=== PATIENT | female | born 1930 | race Caucasian/White ===

== ENCOUNTER 2016-07-26 18:57 | Inpatient (IN) | payer OTHER ==
--- NOTE | ~2016-07-26 | EKG ---
PATIENT: JASS SLATER UNIT #: [id number] Ventricular Rate: 74 BPM Atrial Rate: 74 BPM P-R Interval: 208 ms QRS Duration: 86 ms Q-T Interval: 428 ms QTC Calculation(Bezet): 475 ms P [place]: 49 degrees Calculated R [place]: 8 degrees Calculated T [place]: 63 degrees Diagnosis Line: Normal sinus rhythm Diagnosis Line: ST and T wave abnormality, consider lateral ischemia Diagnosis Line: Prolonged QT Diagnosis Line: Abnormal ECG Diagnosis Line: No previous ECGs available Diagnosis Line: Confirmed by MELANIE CARBONE MD ([id number]) on 07/27/2016 Diagnosis Line: 5:42:25 PM INTERPRETING MD: TONA OSHEA
--- NOTE | ~2016-07-26 | CO ---
Unit #: [id number] #: [id number] Patient: JASS SLATER [id number] [place], [place] [address] [id number] I MR#: [id number] NAME: JASS SLATER. ROOM: 552 Age: 86 Sex: F Admission Date: 07/27/2016 : 1930 Attending Physician: Billie Ellis M.D. Primary Care Physician: Patel Shahid M.D. CONSULTATION REPORT REASON FOR CONSULTATION Sinus pauses. HISTORY OF PRESENT ILLNESS The patient is an 86-year-old female who was reportedly at [facility] yesterday and says she felt she "was going down" and then woke on the floor. According to chart review, there was also some nausea and lightheadedness prior to the episode. The patient was reportedly without consciousness for approximately 2 minutes. EMS was called, and the patient was transferred to the emergency department. She was found to have a heart rate of 82 and a blood pressure of 182/100. Rhythm strips showed normal sinus rhythm with prolonged sinus pauses of approximately 4 seconds. The patient denies any other episodes of lightheadedness, dizziness or syncope prior to this episode. She also denies any problems with chest pain, shortness of breath, orthopnea, PND, palpitations or tachycardia. The patient says that she lives alone and obtains her own groceries and is fairly active. She also reports that she ran out of her medications 2 days ago. PAST MEDICAL HISTORY 1. Hypertension. 2. Dyslipidemia. PAST SURGICAL HISTORY 1. Cataracts. 2. Cholecystectomy. 3. Total abdominal hysterectomy. 4. Appendectomy. 5. Tonsillectomy. HOME MEDICATIONS Unknown. A list has been requested from her pharmacy. ALLERGIES Sulfa and morphine. SOCIAL HISTORY She has never smoked. She denies alcohol use or illicit drug use. She lives alone. FAMILY HISTORY There is no family history of premature coronary artery disease. REVIEW OF SYSTEMS Unit #: [id number] #: [id number] Patient: JASS SLATER GENERAL: Denies fevers, chills or flu-like symptoms. HEENT: Denies headaches, vision loss, hearing loss, epistaxis or dysphagia. NECK: Denies swollen glands or pain. PULMONARY: Denies cough, hemoptysis or wheezing. CARDIAC: Denies chest pain, palpitations, tachycardia, orthopnea or PND. ABDOMEN: Denies nausea, vomiting, diarrhea or melena. : Denies hematuria. EXTREMITIES: Denies swelling or pain. MUSCULOSKELETAL: Denies joint pain or back pain. NEUROLOGIC: Denies other episodes of dizziness or lightheadedness other than the above-mentioned episode. PHYSICAL EXAMINATION VITAL SIGNS: Blood pressure is 118/62, heart rate 75 and regular, respirations 18 and regular, temperature 97.5. Weight is 141 pounds. GENERAL: The patient is a well-developed, well-nourished female in no acute distress. Awake, alert and oriented x2. The patient does not recall the year. HEENT: Head is normocephalic, atraumatic. There are no xanthelasmas. Oral mucosa is pink and moist. NECK: No JVD or carotid bruits. SPINE: Positive for kyphosis. CARDIAC: Regular rate and rhythm without murmur, gallop, rub or lift. PULMONARY: Clear to auscultation bilaterally without wheezes, rhonchi, rales or accessory muscle use. ABDOMEN: Soft, nontender, nondistended. Positive bowel sounds x4. Abdominal pulsation is not enlarged. EXTREMITIES: No clubbing, cyanosis or edema. DIAGNOSTIC STUDIES LABS: White blood cell 11.5, hemoglobin 13.1, hematocrit 40.3, platelets 227. Sodium 139, potassium 3.3, chloride 105, CO2 24, glucose 135, BUN 13, creatinine 0.9, AST 25, ALT 19. PT 10.6, INR 1. IMAGING: CT of the head without contrast showed generalized atrophy and periventricular microvascular white matter ischemic change but no acute intracranial abnormality. There was right maxillary sinusitis. CT of the abdomen and pelvis with contrast showed surgical absence of gallbladder. Diverticulosis. No evidence of diverticulitis. A moderate sized hiatal hernia. ASSESSMENT AND PLAN 1. Sick sinus syndrome with 4-second pauses and syncope. 2. Hypertension. 3. Dyslipidemia. Ms. Slater' case was discussed with Dr. Ramos and Dr. Ellis. She will be transferred to [facility] for permanent pacemaker placement. The patient's family has been contacted and are agreeable. She will also have a two-D echo prior to being transferred to determine her EF. Dictated by... Juno oMnahan for Saturnino Ramos M.D. Unit #: [id number] #: [id number] Patient: SLATERJASS CMG/sherman TD: 07/27/2016 09:17 JOB #: [id number] CONSULTATION REPORT X X CONSULTATION REPORT
--- NOTE | ~2016-07-26 | HP ---
Unit #: [id number] #: [id number] Patient: JASS SLATER [id number] [facility]. [place], [place] [address] [id number] I MR#: [id number] NAME: JASS SLATER. ROOM: 55 Age: 86 Sex: F Admission Date: 07/27/2016 : 1930 Attending Physician: Didi Mayfield M.D. Primary Care Physician: Patel Shahid M.D. HISTORY AND PHYSICAL CHIEF COMPLAINT Syncope. HISTORY This pleasant 86-year-old female with hypertension, hyperlipidemia, is admitted for syncope. The patient states that she was well until yesterday. She was walking to the [place] line at [facility] [employer], felt very lightheaded and nauseous. Sat down and then had a two minute syncopal episode. EMS was called, and the patient was brought to this emergency department with initial heart rate of 82, blood pressure 182/100. Rhythm strips show long sinus pauses and bradycardia. The patient denies chest pain, shortness of breath or palpitations with the above. The patient was last admitted for syncope in 2003 which was thought to be possibly neurocardiac syncope. Has not had a syncopal episode since that time. In our ER, she was treated with 20 mg of IV labetalol, 4 mg of Zofran, 0.2 mg of clonidine. Current blood pressure is 96/58. PAST MEDICAL HISTORY 1. Hypertension. 2. Hyperlipidemia. 3. Cataract extraction. 4. Cholecystectomy. 5. Total abdominal hysterectomy. 6. Appendectomy. 7. Tonsillectomy. ALLERGIES Sulfa and morphine. HOME MEDICATIONS Unknown. Will obtain list from [employer] and [employer]. FAMILY HISTORY Negative for CAD. SOCIAL HISTORY The patient lives alone. She is a lifelong nonsmoker, does not drink alcohol. Unit #: [id number] #: [id number] Patient: JASS SLATER A REVIEW OF SYSTEMS Notable for syncope today, nausea, above mentioned surgeries, hypertension, hyperlipidemia. All other systems were reviewed and are negative. PHYSICAL EXAMINATION GENERAL APPEARANCE: Very pleasant 86-year-old female who looks younger than stated age. VITAL SIGNS: Temperature 97.2, pulse 82, respirations 14, blood pressure 182/100. O2 saturation 97% on room air. HEENT: Eyes PERRLA. Extraocular muscles are intact, status post bilateral cataract extraction. Pharynx is benign. NECK: Supple without adenopathy or thyromegaly. No carotid bruits. CHEST: Clear. CARDIAC: Normal S1 and S2 without murmur. ABDOMEN: Bowel sounds are present. No hepatosplenomegaly, tenderness or masses. EXTREMITIES: Without clubbing, cyanosis or edema. Pedal pulses are present. NEUROLOGIC EXAM: The patient is awake, alert, oriented. Cranial nerves are intact. She has strength throughout. DIAGNOSTIC STUDIES LABORATORY: Admission labs - hematocrit 43.1, normal white count and platelet count. Negative cardiac markers. Coags are normal. SMA-12 - glucose 135, potassium 3.3. IMAGING: Head CT - atrophy, small vessel ischemic disease, right maxillary sinusitis but nothing acute. CT scan of the abdomen and pelvis - diverticular disease and moderate hiatal hernia. CARDIOVASCULAR: EKG shows a normal sinus rhythm, rate 75 with a first degree AV block. Nonspecific ST wave abnormalities. ASSESSMENT 1. Syncope preceded by lightheadedness while ambulating at [facility] today: The patient is normally active without symptoms. EMS rhythm strip shows long sinus pauses and bradycardia. 2. Accelerated hypertension. 3. Hyperlipidemia. 4. Mild hypokalemia. 5. Family is concerned that patient may be showing some early signs of dementia with sundowning. I did not mention this in my H and P. PLANS 1. Obtain echo, Holter monitor, repeat cardiac enzymes and consult cardiology. 2. Start aspirin. 3. Blood pressure control. 4. Obtain TSH, B12, urinalysis. 5. SCDs for DVT prophylaxis. 6. Verify home medicines. 7. I discussed with family the patient should be seen by her primary Unit #: [id number] #: [id number] Patient: JASS SLATER A care physician for concerns of memory issues. I have also given the family the name of a neurologist, Dr. Raffi Rod, if further workup needs to be performed also. Dictated by Didi Mayfield M.D. AML/df TD: 07/27/2016 05:02 JOB #: [id number] CC: Marcia Rooney M.D. HISTORY AND PHYSICAL X Didi Mayfield MD HISTORY AND PHYSICAL
--- NOTE | ~2016-07-26 | DS ---
Unit #: [id number] #: [id number] Patient: JASS SLATER [id number] [facility]. [place], [place] [address] [id number] I MR#: [id number] NAME: JASS SLATER. ROOM: 552 Age: 86 Sex: F Admission Date: 07/27/2016 : 1930 Discharge Date: 07/27/2016 Attending Physician: Billie Ellis M.D. Primary Care Physician: Paetl Shahid M.D. DISCHARGE SUMMARY PRINCIPAL DIAGNOSES 1. Syncope secondary to four second pause. 2. Sick sinus syndrome with associated significant bradycardia. 3. Hypertensive urgency. 4. Urinary retention status post Soler catheter placement. 5. Hypokalemia. 6. Hyperlipidemia. 7. Memory loss with associated sundowning. 8. Right maxillary sinusitis. GEAR STRAIGHTENER Dr. Guillen, Cardiology. PROCEDURES 1. CT of the head without contrast, on July 26, 2016, with generalized atrophy and periventricular microvascular white matter ischemic change. Right maxillary sinusitis noted. 2. CT scan of the abdomen and pelvis with contrast with surgical absence of gallbladder, diverticulosis noted. Moderate sized hiatal hernia noted. CLINICAL HISTORY AND HOSPITAL COURSE Ms. Slater is an 86-year-old female transferred to the hospital via EMS after an episode of syncope at [facility]. Please refer to H and P for further details. Blood pressure was elevated at 182/100 in the emergency department. Rhythm strips from EMS demonstrate approximately a four to five second sinus pause with associated significant bradycardia with heart rates in the thirties to forties. The patient denies any chest pain. She was admitted to our hospital for further evaluation. The patient remained stable overnight in normal sinus rhythm. However, her significant sinus pause is concerning. I have discussed with the patient who, unfortunately, has some memory loss which is limiting her understanding. I have also discussed this finding with the patient's daughter, Ms. Ade Daniel. I have informed her that treatment for this would be permanent pacemaker placement. Strips have been reviewed by Cardiology who agree with treatment and the patient will be transferred to [facility] in anticipation of pacemaker placement later today per Dr. Ramos. The patient is also complaining of urinary retention without urination since yesterday. I am going to place a Soler catheter prior to discharge and this can be followed up at [facility]. Unit #: [id number] #: [id number] Patient: JASS SLATER The patient also clinically does have some significant underlying memory loss. TSH and vitamin B12 here are pending and they can be further evaluated at [facility]. DISCHARGE CONDITION Stable but in need of pacemaker, transferred to [facility] in anticipation of pacemaker placement. DISCHARGE MEDICATIONS 1. Tylenol 650 mg p.o. or p.r. q.4 hours p.r.n. for pain. 2. Hydralazine 10 mg IV q.6 hours p.r.n. for systolic blood pressure greater than 160. 3. Zofran 4 mg IV q.6 hours p.r.n. for nausea, vomiting. 4. Normal saline at 75 mL/hour. DISCHARGE INSTRUCTIONS The patient will remain n.p.o. for now in anticipation of permanent pacemaker. FOLLOWUP The patient, again, will be seen by Dr. Ramos at [facility] and this will be further discussed with patient and her family at that time. Time spent on discharge-41 minutes. Dictated by... Billie Ellis M.D. FLEX/madelyn TD: 07/27/2016 08:24 JOB #: [id number] DISCHARGE SUMMARY X Billie Ellis MD X DISCHARGE SUMMARY
--- NOTE | ~2016-07-26 | CT2 ---
[facility] A Service of [facility] RADIOLOGY TEXT RESULTS PATIENT: JASS SLATER LOCATION: [facility] 552-01 : 32 UNIT #: [id number] AGE: [address]: Billie Ellis MD SEX: F ORDER DR: [id number] [facility] [address] [place], [place] [address] [id number] I MR#: [id number] Acc #: [id number] NAME: JASS SLATER. : 1930 SEX: F STUDY DATE/TIME: 07/26/2016 20:37 UNIT: [facility] ROOM: [facility] STUDY DESCRIPTION: CT Abd and Pelv W Cont Attending Physician: Didi Mayfield M.D. Ordering Physician: Ronnell Dinh M.D. Primary Care Physician: Patel Shahid M.D. MEDICAL IMAGING REPORT This report is preliminary unless electronic signature is present EXAM CT scan of the abdomen and pelvis with contrast, 07/26/2016 HISTORY Nausea and vomiting today after syncopal episode. TECHNIQUE Spiral CT was performed through the abdomen and pelvis following oral and intravenous contrast administration. This CT exam was performed with one or more of the following radiation dose reduction techniques: Automatic exposure control, adjustment of mA and/or kV according to patient size, and iterative reconstruction. FINDINGS ABDOMEN: There is no prior CT scan of the abdomen and pelvis for comparison. The liver, spleen, pancreas and adrenal glands are normal. The gallbladder is surgically absent. The kidneys are normal. PELVIS FINDINGS: There is colonic diverticulosis without evidence of diverticulitis. The gut is otherwise unremarkable. No adenopathy is seen. There is no free fluid in the abdomen or pelvis. Images of the lung bases demonstrate a moderate-sized hiatal hernia. IMPRESSION 1. Surgical absence of the gallbladder. 2. Diverticulosis. No evidence of diverticulitis. 3. Moderate-sized hiatal hernia. Dictated by... Eric Cr M.D. [facility] A Service [facility] RADIOLOGY TEXT RESULTS PATIENT: JASS SLATER LOCATION: [facility] 552-01 : 32 UNIT #: [id number] AGE: [address]: Billie Ellis MD SEX: F ORDER DR: THIS IS AN ELECTRONICALLY VERIFIED REPORT Eric Cr M.D. at 07/27/2016 2:19 PM KRT/psc TD: 07/27/2016 05:20 JOB #: [id number] MEDICAL IMAGING REPORT COPY
--- NOTE | ~2016-07-26 | CT71 ---
[facility] A Service [facility] RADIOLOGY TEXT RESULTS PATIENT: JASS SLATER LOCATION: [facility] : 32 UNIT #: [id number] AGE: [address]: Billie Ellis MD SEX: F ORDER DR: [id number] [facility] [address] [place], [place] [address] [id number] I MR#: [id number] Acc #: [id number] NAME: JASS SLATER : 1930 SEX: F STUDY DATE/TIME: 07/26/2016 20:35 UNIT: [facility] ROOM: [facility] STUDY DESCRIPTION: CT Head Wo Contrast Attending Physician: Didi Mayfield M.D. Ordering Physician: Ronnell Dinh M.D. Primary Care Physician: Patel Shahid M.D. MEDICAL IMAGING REPORT This report is preliminary unless electronic signature is present EXAM Head CT without contrast, 07/26/2016 HISTORY Syncopal episode with nausea and vomiting today. Benign essential hypertension. FINDINGS This CT exam was performed with one or more of the following radiation dose reduction techniques: Automatic exposure control, adjustment of mA and/or kV according to patient size, and iterative reconstruction. Multiple axial images were obtained from the skull base to vertex without intravenous contrast administration. There is generalized enlargement of the ventricles and sulci characteristic of atrophy, and there is periventricular microvascular white matter ischemic change. There is no midline shift. There is no mass or mass effect, hemorrhage or acute infarct. Complete opacification of the right maxillary sinus is noted. IMPRESSION 1. Generalized atrophy and periventricular microvascular white matter ischemic change. No acute intracranial abnormality. 2. Right maxillary sinusitis. Dictated by... Eric Cr M.D. THIS IS AN ELECTRONICALLY VERIFIED REPORT Eric Cr M.D. at 07/27/2016 2:19 PM KRT/federico TD: 07/27/2016 05:13 [facility] A Service [facility] RADIOLOGY TEXT RESULTS PATIENT: JASS SLATER [facility]ATION: [facility] [address] [id number] : 32 UNIT #: [id number] AGE: [address]: Billie Ellis MD SEX: F ORDER DR: JOB #: [id number] MEDICAL IMAGING REPORT COPY
[~2016-07-26 18:57] MED LIST: BLOOD PRESSURE MED; CENTRUM SILVER PO; IBUPROFEN PO; LIPITOR PO; OYSTER CALCIUM500 MG PO; TOPROL XL PO; TYLENOL ARTHRITIS; ZESTORETIC 20/21 TAB PO
[2016-07-26 19:22] LABS: BASOPHIL% 0.4 % (0-2.5); EOSINOPHIL% 0.4 % (0.0-7.0); HEMATOCRIT 43.1 % (35.0-45.0); HEMOGLOBIN 14.3 gm/dL (12.0-16.0); LYMPHOCYTE# 1.4 X10e3 (1.0-3.5); LYMPHOCYTE% 13.9 % (17.0-45.0); MEAN CELL VOLUME 88.9 FL (83-96); MEAN CORPUSCULAR HEMOGLOBIN 29.6 PG (28-34); MEAN CORPUSCULAR HGB CONC 33.2 g/dL (30-36); MEAN PLATELET VOLUME 10.3 FL (6.5-11.5); MONOCYTE# 0.6 X10e3 (0-1.0); MONOCYTE% 5.9 % (3.0-12.0); NEUTROPHIL# 7.9 X10e3 (1.5-7.1); NEUTROPHIL% 79.4 % (40-75); PLATELET COUNT 196 X10e3 (140-420); RED BLOOD COUNT 4.85 X10e (3.90-5.30); RED CELL DISTRIBUTION WIDTH 13.8 % (11.0-15.5)
[2016-07-26 19:28] LABS: DIFF IND NO
[2016-07-26 19:42] LABS: PARTIAL THROMBOPLASTIN TIME 22.6 SECONDS (23.5-31.3); PROTHROMBIN TIME (PATIENT) 10.6 SECONDS (9.6-11.5)
[2016-07-26 20:26] LABS: ALKALINE PHOSPHATASE 74 U/L (32-92); ALT (SGPT) 19 U/L (10-40); AST (SGOT) 25 U/L (10-42); BILIRUBIN, DIRECT 0.1 mg/dL (0.0-0.2); BILIRUBIN,INDIRECT 0.8 mg/dL (0.0-0.9); BILIRUBIN,TOTAL 0.9 mg/dL (0.2-2.0); BLOOD UREA NITROGEN 13 mg/dL (9-23); BUN/CREATININE RATIO 14.44; CALCIUM SERUM 9.1 mg/dL (8.4-10.2); CARBON DIOXIDE 24 mmol/L (22-31); CHLORIDE 105 mmol/L (100-111); CREATININE SERUM 0.9 mg/dL (0.6-1.4); GLOM FILT RATE Estimated ABOVE60 mL/min (>60); GLUCOSE FASTING 135 mg/dL (70-110); POTASSIUM 3.3 mmol/L (3.5-5.1); PROTEIN TOTAL SERUM 7.4 g/dL (6.0-8.3); SODIUM 139 mmol/L (135-145)
[2016-07-26 23:37] LABS: POC - CKMB 1.4 ng/mL (0.0-7.9); POC - TROPONIN <0.05 ng/mL (<=0.05)
[2016-07-27 07:30] LABS: HEMATOCRIT 40.3 % (35.0-45.0); HEMOGLOBIN 13.1 gm/dL (12.0-16.0); MEAN CELL VOLUME 88.5 FL (83-96); MEAN CORPUSCULAR HEMOGLOBIN 28.8 PG (28-34); MEAN CORPUSCULAR HGB CONC 32.5 g/dL (30-36); MEAN PLATELET VOLUME 9.2 FL (6.5-11.5); RED BLOOD COUNT 4.55 X10e (3.90-5.30); RED CELL DISTRIBUTION WIDTH 13.9 % (11.0-15.5); WHITE BLOOD COUNT 11.5 X10e3 (4.0-10.5)
[2016-07-27 08:21] LABS: BUN/CREATININE RATIO 14.54; CALCIUM SERUM 9.4 mg/dL (8.4-10.2); CREATININE SERUM 1.1 mg/dL (0.6-1.4); GLOM FILT RATE Estimated 50.3 mL/min (>60); MAGNESIUM 2.2 mg/dL (1.6-3.0)
== END 2016-07-27 11:06 | DRG 309 ==
LOC: CED 18:57 → CEDOF 07-27 00:30 → C5B 07-27 02:10
PROVIDERS: Emergency Medicine; Internal Medicine
PROC: B24BYZZ Ultrasonography of Heart with Aorta using Other Contrast (ICD-10-PCS; principal; 2016-07-27)
DX: I49.5 Sick sinus syndrome (principal); F05 Delirium due to known physiological condition; R00.1 Bradycardia, unspecified; I16.0 Hypertensive urgency; R33.9 Retention of urine, unspecified; E87.6 Hypokalemia; E78.5 Hyperlipidemia, unspecified; J32.0 Chronic maxillary sinusitis; K44.9 Diaphragmatic hernia without obstruction or gangrene; Z98.49 Cataract extraction status, unspecified eye; Z88.2 Allergy status to sulfonamides; Z90.49 Acquired absence of other specified parts of digestive tract; Z90.710 Acquired absence of both cervix and uterus
CPT/HCPCS: 36415; 70450; 74177; 80048; 80076; 82553; 82607; 83735; 84443; 84484; 85025; 85027; 85610; 85730; 93005; 93306; 96374; 96375; 99285; J2405; Q9967

== ENCOUNTER → 2017-02-05 | Outpatient (CLI) | payer OTHER ==
--- NOTE | ~2017-02-05 | CT71 ---
[facility] A Service [facility] RADIOLOGY TEXT RESULTS PATIENT: JASS SLATER LOCATION: [facility] : 32 UNIT #: [id number] AGE: [address]: Raffi Rod II, MD SEX: F ORDER DR: [id number] [address] [id number] O MR#: [id number] Acc #: [id number] NAME: JASS SLATER : 1930 SEX: F STUDY DATE/TIME: 02/05/2017 12:58 UNIT: [facility] ROOM: STUDY DESCRIPTION: CT Head Wo Contrast Attending Physician: Raffi Rod II., M.D. Referring Physician: Raffi Rod II., M.D. Ordering Physician: Raffi Rod II., M.D. Primary Care Physician: Patel Shahid M.D. MEDICAL IMAGING REPORT This report is preliminary unless electronic signature is present. EXAM Head CT no contrast, 02/05/17 PROCEDURE Axial unenhanced head CT. The CT exam was performed with one or more of the following radiation dose reduction techniques: automatic exposure control, adjustment of mA and/or kV according to patient size, and iterative reconstruction. COMPARISON Prior head CT dated 07/26/2016 CLINICAL HISTORY is 2 to 3-week history of headache and short-term memory loss. FINDINGS Chronic changes in the right maxillary sinus are redemonstrated. The skull base and calvaria are otherwise unremarkable. There is mild age-appropriate volume loss and minimal nonspecific white matter change but there is no intracranial hemorrhage and there is no mass, hydrocephalus or extraaxial fluid collection. The extracranial soft tissues are normal. IMPRESSION Minimal senescent changes. No acute abnormality and no interval change since 07/26/2016. Dictated by... [facility] A Service [facility] RADIOLOGY TEXT RESULTS PATIENT: JASS SLATER LOCATION: [facility] : 32 UNIT #: [id number] AGE: [address]: Raffi Rod II, MD SEX: F ORDER DR: Tayo Perry M.D. THIS IS AN ELECTRONICALLY VERIFIED REPORT Tayo Perry M.D. at 02/09/2017 7:31 AM ERI/venus TD: 02/06/2017 08:15 JOB #: [id number] MEDICAL IMAGING REPORT Page 1 of 1
== END | disposition home or self-care (01) ==
LOC: SCT 01-30 10:40
DX: R41.3 Other amnesia (principal)
CPT/HCPCS: 70450